=== PATIENT | female | born 1990 | race African-American/Black ===

== ENCOUNTER 2021-12-11 03:27 | Emergency (ER) | payer OTHER, SELFPAY ==
[2021-12-11 11:39] LABS: SARS-CoV-2 PCR by NAA DETECTED (NotDetected)
== END 2021-12-11 04:39 | disposition home or self-care (01) ==
LOC: ERS 03:27
DX: U07.1 COVID-19 (principal)
CPT/HCPCS: 99283; U0003; U0005